=== PATIENT | male | born 1960 | race Caucasian/White ===

== ENCOUNTER 2021-04-05 19:38 | Emergency (ER) | payer BC ==
[~2021-04-05] VITALS: Ht 175.3 cm; Wt 104.0 kg
[~2021-04-05 19:38] MED LIST: FLEXERIL PO
[2021-04-05] MEDS ORDERED: METFORMIN HCL1000 MG PO (22:11)
[2021-04-05] MEDS ORDERED: COZAAR25 MG PO (22:11)
[2021-04-05] MEDS ORDERED: LORTAB 1010 MG PO (22:45)
[2021-04-05 23:00] VITALS: BP 149/78
== END 2021-04-05 23:05 | disposition home or self-care (01) | DRG 605 ==
LOC: ED 19:38
DX: S20.213A Contusion of bilateral front wall of thorax, initial encounter (principal); I10 Essential (primary) hypertension; E11.9 Type 2 diabetes mellitus without complications; W50.0XXA Accidental hit or strike by another person, initial encounter; Y93.83 Activity, rough housing and horseplay; Y92.009 Unspecified place in unspecified non-institutional (private) residence as the place of occurrence of the external cause; Z79.84 Long term (current) use of oral hypoglycemic drugs